=== PATIENT | male | born 1950 | race Caucasian/White ===

== ENCOUNTER 2019-03-19 16:25 | Emergency (ER) | payer MEDICARE ==
[~2019-03-19] VITALS: Ht 180.3 cm; Wt 72.7 kg
[2019-03-19 16:29] VITALS: BP 162/82; Ht 180.3 cm; Wt 72.7 kg
== END 2019-03-19 17:58 | disposition left against medical advice (07) ==
LOC: D.ER 16:25
DX: F15.10 Other stimulant abuse, uncomplicated (principal)